=== PATIENT | male | born 1940 | race Caucasian/White ===

== ENCOUNTER 2021-11-06 10:11 | Inpatient (IN) ==
[2021-11-06 10:51] LABS: INR 1.99 (0.89-1.11)
[2021-11-06 11:31] LABS: ABS Basophils 0.1 10^3/ul (0-0.2); ABS Eosinophils 0.3 10^3/ul (0-0.6); ABS Monocytes 0.6 10^3/ul (0-0.8); ABS Neutrophils 5.5 10^3/ul (1.5-7.7); Eosinophil % 3.4 %; Hematocrit 24 % (42-52); Hemoglobin 7.5 g/dL (14.0-18.0); Lymphocyte % 13.8 %; Mean Corpuscular HGB Conc 31 g/dL (31-36); Mean Corpuscular Hemoglobin 21 pg (27-31); Mean Corpuscular Volume 69 fL (80-94); Mean Platelet Volume 9.7 fL (7.4-10.4); Platelet Count 228 10^3/uL (150-450); Red Blood Count 3.51 10^6 /uL (4.18-5.48); Red Cell Distribution Width 19 % (10-15); White Blood Count 7.5 10^3/uL (3.5-10.8)
[2021-11-06 11:32] LABS: Albumin 3.9 g/dL (3.2-5.2); Albumin/Globulin Ratio 1.2 (1-3); Calcium 9.1 mg/dL (8.6-10.3); Globulin 3.2 g/dL (2-4); Potassium 4.7 mmol/L (3.5-5.0); Total Bilirubin 0.5 mg/dL (0.2-1.0); Total Protein 7.1 g/dL (6.4-8.9); eGFR CKD-EPI 57.7 (>60)
[2021-11-06 12:13] LABS: High Sensitivity Troponin 1 Hr 15 pg/mL (<20)
[2021-11-06] MEDS ORDERED: Pantoprazole VIAL 40 MG VIAL IV ONE (12:44)
[2021-11-06 13:45] LABS: Activated Partial Thrombo Time 41.7 seconds (26.0-38.0); INR 2.4 (0.89-1.11)
[2021-11-06] MEDS ORDERED: Furosemide 40 mg/4 ml IV VIAL IV SLOW PU ONE (13:51)
[2021-11-06] MEDS ORDERED: Iodixanol (CONTRAST) 320 MG/ML 100 ML SDV IV ONE (14:39)
[2021-11-06 14:52] LABS: Urine Appearance Clear; Urine Bilirubin Negative (Negative); Urine Blood Negative (Negative); Urine Color Yellow; Urine Glucose Negative (Negative); Urine Ketones Negative (Negative); Urine Protein Negative (Negative)
[2021-11-06 14:53] LABS: Urine Nitrite Negative (Negative); Urine Urobilinogen 0.2 (Negative) (Negative)
[2021-11-06] MEDS ORDERED: Dextrose 50% Syringe 50 ml 25 GM/50 ML SYRINGE IV PUSH PRN (16:25)
[2021-11-06] MEDS: Pantoprazole 80 mg in NS BAG 80 MG/250 ML BAG IV SCH (18:27)
[2021-11-06 20:20] LABS: Hematocrit 26 % (42-52); Hemoglobin 7.9 g/dL (14.0-18.0)
[2021-11-07 08:57] LABS: ABS Basophils 0.1 10^3/ul (0-0.2); ABS Eosinophils 0.2 10^3/ul (0-0.6); ABS Monocytes 0.9 10^3/ul (0-0.8); ABS Neutrophils 6.2 10^3/ul (1.5-7.7); Hematocrit 25 % (42-52); Hemoglobin 7.7 g/dL (14.0-18.0); Lymphocyte % 11.9 %; Mean Corpuscular HGB Conc 31 g/dL (31-36); Mean Corpuscular Hemoglobin 21 pg (27-31); Mean Corpuscular Volume 68 fL (80-94); Mean Platelet Volume 9.4 fL (7.4-10.4); Platelet Count 223 10^3/uL (150-450); Red Blood Count 3.68 10^6 /uL (4.18-5.48); Red Cell Distribution Width 19 % (10-15); White Blood Count 8.3 10^3/uL (3.5-10.8)
[2021-11-07] MEDS ORDERED: Furosemide 40 mg/4 ml IV VIAL IV SLOW PU ONE (09:00)
[2021-11-07 09:34] LABS: Potassium 4.3 mmol/L (3.5-5.0); eGFR CKD-EPI 55.5 (>60)
[2021-11-07 10:47] LABS: INR 1.38 (0.89-1.11)
[2021-11-07] MEDS: Pantoprazole VIAL 40 MG VIAL IV SCH (11:09)
[2021-11-07] MEDS: Pantoprazole 80 mg in NS BAG 80 MG/250 ML BAG IV SCH (12:55)
[2021-11-07] MEDS ORDERED: fentaNYL 100 mcg/2 ml 50 MCG/ML VIAL ONE (14:44)
[2021-11-07] MEDS ORDERED: Midazolam 10 mg/10 ml VIAL 1 mg/ml 10 ml VIAL (10 mg) ONE (14:44)
[2021-11-08] MEDS ORDERED: Furosemide 20 mg/2 ml IV VIAL IV SLOW PU ONE (07:44)
[2021-11-08 08:13] LABS: ABS Eosinophils 0.2 10^3/ul (0-0.6); ABS Lymphocytes 0.8 10^3/ul (1.0-4.8); ABS Monocytes 1.1 10^3/ul (0-0.8); ABS Neutrophils 7.5 10^3/ul (1.5-7.7); Eosinophil % 1.9 %; Hematocrit 24 % (42-52); Hemoglobin 7.6 g/dL (14.0-18.0); Lymphocyte % 8.8 %; Mean Corpuscular HGB Conc 31 g/dL (31-36); Mean Corpuscular Hemoglobin 21 pg (27-31); Mean Corpuscular Volume 69 fL (80-94); Mean Platelet Volume 9.6 fL (7.4-10.4); Platelet Count 209 10^3/uL (150-450); Red Blood Count 3.55 10^6 /uL (4.18-5.48); Red Cell Distribution Width 19 % (10-15); White Blood Count 9.6 10^3/uL (3.5-10.8)
[2021-11-08 08:38] LABS: Calcium 9.1 mg/dL (8.6-10.3); Potassium 3.7 mmol/L (3.5-5.0)
[2021-11-08] MEDS ORDERED: Iron Sucrose 200 MG in NS 0.9% 100 ml BAG 100 ML IVPB ONE (11:13)
[2021-11-08] MEDS: Pantoprazole VIAL 40 MG VIAL IV SCH (11:37)
[2021-11-08] MEDS ORDERED: Furosemide 40 mg/4 ml IV VIAL IV SLOW PU ONE ×2 (12:47→18:32)
[2021-11-08] MEDS ORDERED: Propofol 10 MG/ML 20 ML BTL ONE ×2 (14:14→16:21)
[2021-11-08] MEDS ORDERED: Lidocaine 2% PF 5 ML VIAL ONE (14:14)
[2021-11-08] MEDS ORDERED: fentaNYL 100 mcg/2 ml 50 MCG/ML VIAL ONE (14:15)
[2021-11-08] MEDS ORDERED: Naloxone 0.4 mg VIAL 0.4 mg/ml 1 ml VIAL IV PRN (16:00)
[2021-11-09 06:00] LABS: ABS Basophils 0.1 10^3/ul (0-0.2); ABS Eosinophils 0.3 10^3/ul (0-0.6); ABS Lymphocytes 1.2 10^3/ul (1.0-4.8); ABS Monocytes 0.8 10^3/ul (0-0.8); ABS Neutrophils 6.4 10^3/ul (1.5-7.7); Eosinophil % 2.9 %; Hematocrit 25 % (42-52); Hemoglobin 7.7 g/dL (14.0-18.0); Lymphocyte % 13.3 %; Mean Corpuscular HGB Conc 31 g/dL (31-36); Mean Corpuscular Hemoglobin 22 pg (27-31); Mean Corpuscular Volume 70 fL (80-94); Mean Platelet Volume 9.9 fL (7.4-10.4); Platelet Count 199 10^3/uL (150-450); Red Blood Count 3.54 10^6 /uL (4.18-5.48); Red Cell Distribution Width 19 % (10-15); White Blood Count 8.7 10^3/uL (3.5-10.8)
[2021-11-09 06:04] LABS: Calcium 9.1 mg/dL (8.6-10.3); Potassium 3.3 mmol/L (3.5-5.0); eGFR CKD-EPI 66.4 (>60)
[2021-11-09] MEDS ORDERED: Iron Sucrose 200 MG in NS 0.9% 100 ml BAG 100 ML IVPB ONE ×2 (08:08→12:50)
[2021-11-09] MEDS ORDERED: Furosemide 40 mg/4 ml IV VIAL IV SLOW PU ONE ×2 (08:10→14:00)
[2021-11-09] MEDS ORDERED: Potassium Chlor 20 meq TAB.ER PO ONE (08:11)
[2021-11-09] MEDS ORDERED: Eye Irrigation Solution 30 ML BOTTLE BOTH EYES ONE (09:43)
[2021-11-09] MEDS: Pantoprazole VIAL 40 MG VIAL IV SCH (09:47)
[2021-11-09] MEDS ORDERED: Eye Irrigation Solution 30 ML BOTTLE BOTH EYES SCH (14:00)
[2021-11-09 15:44] VITALS: BP 141/70
== END 2021-11-09 16:35 | disposition home or self-care (01) | DRG 378 ==
LOC: ED 10:11 → SUATTDRO 16:22 → MEDTELE 16:22 → ED 20:36
PROVIDERS: ADMIT Internal Medicine; ATTEND Internal Medicine
PROC: O.GIEGD (2021-11-08 15:00)